=== PATIENT | female | born 1965 | race Caucasian/White ===

== ENCOUNTER 2018-06-02 11:00 | Observation (INO) | payer MEDICARE ==
--- NOTE | 2018-06-02 11:23 | ERPHSYRPT ---
- History of Present Illness Time Seen by Provider: 06/02/18 11:14 Source: patient, EMS Exam Limitations: no limitations Patient Subjective Stated Complaint: Pt states she became short of breath when leaving her apartment this morning to go to the [facility]. Pt states she drove herself to the [facility] and her car does not have air. She is also out of all of her medications. They have not come in the mail yet. Pt states she has not been able to sleep this week. Triage Nursing Assessment: Pt alert and oriented x3. skin pink warm and very diaphoretic. afebrile. lung sounds clear anteriorly. Pt breathing heavy - wears O2 4L all the time Physician History: The patient is a 52-year-old female brought in by ambulance from the [facility] where she becomes very short of breath. She has not been feeling well beginning this morning. She states that she gets short of breath when she exerts herself. She has been feeling hot and cold at the same time. She denies cough. She denies nausea, vomiting, or diarrhea. her prescription medicines are sent to her through the mail. She did not receive them last week as was expected. She called the pharmacy Center at the [facility] and was told that the medicines were delivered by [employer]. She did not receive them. She went to the [facility] this morning to inquire about the medicines and to get her weekly checks. She has COPD and is on 4 L of nasal cannula O2 at home she did not use her air tank on the drive to the [facility]. Past medical history significant for COPD, diabetes, hypertension, possible high cholesterol, depression, PE, and anxiety. Timing/Duration: today Activities at Onset: none Severity of Dyspnea-Max: moderate Severity of Dyspnea-Current: moderate Possible Cause: no prior episodes Modifying Factors: Improves With: activity, exertion Associated Symptoms: fever Allergies/Adverse Reactions: penicillin G Allergy (Mild, Verified 06/02/18 11:11) Hives tuberculin, purified protein deriva [From Tubersol] Adverse Reaction (Verified 06/02/18 11:11) Home Medications: Metformin HCl 500 mg 500 mg PO DAILY 01/30/13 [History] Oxybutynin Chloride 5 mg PO BID 01/30/13 [History] Propranolol HCl 80 mg PO BID 01/30/13 [History] Ziprasidone HCl 80 mg PO HS 01/30/13 [History] Oxcarbazepine 2 tab PO BID 01/31/13 [History] Vilazodone Hydrochloride [Viibryd] 1 tab PO DAILY 01/31/13 [History] Furosemide 20 mg [Lasix 20 mg] 20 mg PO DAILY 03/01/16 [History] Loratadine 10 mg [Claritin 10 mg] 10 mg PO HS 03/01/16 [History] Trazodone HCl 50 mg [Desyrel 50 mg] 50 mg PO HS 03/01/16 [History] Hx Tetanus, Diphtheria Vaccination/Date Given: No Hx Influenza Vaccination/Date Given: Yes Hx Pneumococcal Vaccination/Date Given: Yes - Review of Systems Constitutional: Fever, Chills Eyes: No Symptoms Ears, Nose, & Throat: No Symptoms Respiratory: Dyspnea, Dyspnea on Exertion (GONZALEZ), No Cough Cardiac: No Chest Pain, No Edema, No Syncope Abdominal/Gastrointestinal: No Abdominal Pain, No Nausea, No Vomiting, No Diarrhea Genitourinary Symptoms: No Dysuria Musculoskeletal: No Back Pain, No Neck Pain Skin: No Rash Neurological: No Dizziness, No Focal Weakness, No Sensory Changes Psychological: No Symptoms Endocrine: No Symptoms Hematologic/Lymphatic: No Symptoms Immunological/Allergic: No Symptoms All Other Systems: Reviewed and Negative - Past Medical History Pertinent Past Medical History: Yes Neurological History: Seizures ENT History: No Pertinent History Cardiac History: Hypertension Respiratory History: Bronchitis, Sleep Apnea, Other Endocrine Medical History: Diabetes Type II Musculoskeletal History: Arthritis, Degenerative Disk Disease GI Medical History: No Pertinent History Psycho-Social History: Anxiety, Depression Female Reproductive Disorders: Other Other Medical History: Pt is currently on O2 at home following a blood clot in her lungs last year. - Past Surgical History Past Surgical History: Yes Neuro Surgical History: No Pertinent History Cardiac: No Pertinent History Respiratory: No Pertinent History Gastrointestinal: Cholecystectomy Genitourinary: No Pertinent History Musculoskeletal: No Pertinent History Female Surgical History: No Pertinent History Other Surgical History: t&a - Social History Smoking Status: Never smoker Exposure to second hand smoke: Yes Drug Use: none Patient Lives Alone: Yes - Female History Hx Now: No - Nursing Vital Signs Nursing Vital Signs: Initial Vital Signs Temperature 98.1 F 06/02/18 11:02 Pulse Rate 87 06/02/18 11:02 Respiratory Rate 20 06/02/18 11:02 Blood Pressure 135/84 06/02/18 11:02 O2 Sat by Pulse Oximetry 98 06/02/18 11:02 Pain Scale Pain Intensity 8 - Physical Exam General Appearance: moderate distress, obese Eye Exam: PERRL/EOMI Ears, Nose, Throat Exam: hearing grossly normal Neck Exam: normal inspection, supple Respiratory Exam: diminished breath sounds, other (tachypneic) Cardiovascular/Chest Exam: normal heart sounds, regular rate/rhythm Abdominal/Gastrointestinal Exam: soft, No tenderness, No distention, No mass Rectal Exam: not done Extremity Exam: non-tender, normal range of motion, normal inspection, no calf tenderness, no pedal edema Neurologic Exam: alert, oriented x 3, cooperative, 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 study limited due to motion artifact and suboptimal contrast.) Ordered Tests: Active Orders 24 hr Category Date Time Status Clean Catch Urine Specimen STAT Care 06/02/18 11:31 Active EKG-ER Only STAT Care 06/02/18 11:31 Active IV Insertion STAT Care 06/02/18 11:31 Active CHEST 2 VIEWS (PA AND LAT) Stat Exams 06/02/18 12:16 Completed CHEST WITH CONTRAST [CT] Stat Exams 06/02/18 13:28 Completed CBC W DIFF Stat Lab 06/02/18 11:31 Completed CMP Stat Lab 06/02/18 11:31 Completed CULTURE,URINE Stat Lab 06/02/18 12:28 Received D-DIMER QUANTITATION Stat Lab 06/02/18 11:32 Completed LIPASE Stat Lab 06/02/18 11:31 Completed Lactic Acid Stat Lab 06/02/18 11:31 Completed Lactic Acid Stat Lab 06/02/18 13:42 Ordered TROPONIN Q3H Lab 06/02/18 11:45 Completed TROPONIN Q3H Lab 06/02/18 14:45 Ordered TROPONIN Q3H Lab 06/02/18 17:45 Ordered TROPONIN Q3H Lab 06/02/18 20:45 Ordered TROPONIN Q3H Lab 06/02/18 23:45 Ordered UA W/ MICROSCOPIC Stat Lab 06/02/18 12:28 Completed Medication Summary Discontinued Medications Generic Name Dose Route Start Last Admin Trade Name Yadi PRN Reason Stop Dose Admin Sodium Chloride 1,000 mls @ 999 mls/hr 06/02/18 11:31 06/02/18 11:51 Sodium Chloride 0.9% 1000 Ml IV 06/02/18 12:31 999 mls/hr .Q1H1M STA Administration Sodium Chloride Confirm 06/02/18 11:44 Sodium Chloride 0.9% 1000 Ml Administered 06/02/18 11:45 Dose 1,000 mls @ ud .ROUTE .STK-MED ONE Lab/Rad Data: Laboratory Result Diagrams 06/02/18 11:31 06/02/18 11:31 Laboratory Results 06/02/18 06/02/18 06/02/18 Range/Units 12:28 11:45 11:32 WBC (4.0-10.5) K/mm3 RBC (4.1-5.4) M/mm3 Hgb (12.0-16.0) gm/dl Hct (35-47) % MCV (78-100) fl MCH (26-32) pg MCHC (32-36) g/dl RDW (11.5-14.0) % Plt Count (150-450) K/mm3 MPV (6-9.5) fl Gran % (36.0-66.0) % Eos # (Auto) (0-0.5) Absolute Lymphs (auto) (1.0-4.6) Absolute Monos (auto) (0.0-1.3) Lymphocytes % (24.0-44.0) % Monocytes % (0.0-12.0) % Eosinophils % (0.00-5.0) % Basophils % (0.0-0.4) % Absolute Granulocytes (1.4-6.9) Basophils # (0-0.4) D-Dimer 703 H* (215-500) ng/mL Sodium (137-145) mmol/L Potassium (3.5-5.1) mmol/L Chloride (98-107) mmol/L Carbon Dioxide (22-30) mmol/L Anion Gap (5-15) MEQ/L BUN (7-17) mg/dL Creatinine (0.52-1.04) mg/dL Estimated GFR ML/MIN Glucose (74-106) mg/dL Lactic Acid (0.4-2.0) Calcium (8.4-10.2) mg/dL Total Bilirubin (0.2-1.3) mg/dL AST (14-36) U/L ALT (0-35) U/L Alkaline Phosphatase (38-126) U/L Troponin I < 0.012 (0.000-0.034) ng/mL Serum Total Protein (6.3-8.2) g/dL Albumin (3.5-5.0) g/dL Lipase (23-300) U/L Ur Collection Type VOID Urine Color YELLOW (YELLOW) Urine Appearance HAZY (CLEAR) Urine pH 5.0 (5-6) Ur Specific Dillon 1.020 (1.005-1.025) Urine Protein 3+ (Negative) Urine Ketones MODERATE (NEGATIVE) Urine Blood 5-10 (0-5) Rod/ul Urine Nitrite NEGATIVE (NEGATIVE) Urine Bilirubin SMALL (NEGATIVE) Urine Urobilinogen NORMAL (0-1) mg/dL Ur Leukocyte Esterase TRACE (NEGATIVE) Urine Microscopic RBC 5-10 (0-2) /HPF Urine Microscopic WBC 10-15 (0-5) /HPF Ur Epithelial Cells FEW (FEW) /HPF Urine Bacteria FEW (NEGATIVE) /HPF Urine Mucus SLIGHT (NEGATIVE) /HPF Urine Culture Reflexed YES (NO) Urine Glucose NEGATIVE (NEGATIVE) mg/dL Specimen Received 06/02/18 1228 06/02/18 06/02/18 06/02/18 Range/Units 11:31 11:31 11:31 WBC 9.2 (4.0-10.5) K/mm3 RBC 3.78 L (4.1-5.4) M/mm3 Hgb 12.0 (12.0-16.0) gm/dl Hct 37.2 (35-47) % MCV 98.4 (78-100) fl MCH 31.7 (26-32) pg MCHC 32.3 (32-36) g/dl RDW 13.9 (11.5-14.0) % Plt Count 216 (150-450) K/mm3 MPV 10.1 H (6-9.5) fl Gran % 65.7 (36.0-66.0) % Eos # (Auto) 0.20 (0-0.5) Absolute Lymphs (auto) 2.08 (1.0-4.6) Absolute Monos (auto) 0.85 (0.0-1.3) Lymphocytes % 22.6 L (24.0-44.0) % Monocytes % 9.2 (0.0-12.0) % Eosinophils % 2.2 (0.00-5.0) % Basophils % 0.3 (0.0-0.4) % Absolute Granulocytes 6.05 (1.4-6.9) Basophils # 0.03 (0-0.4) D-Dimer (215-500) ng/mL Sodium 143 (137-145) mmol/L Potassium 4.3 (3.5-5.1) mmol/L Chloride 103 (98-107) mmol/L Carbon Dioxide 23 (22-30) mmol/L Anion Gap 20.8 H (5-15) MEQ/L BUN 12 (7-17) mg/dL Creatinine 0.58 (0.52-1.04) mg/dL Estimated GFR > 60.0 ML/MIN Glucose 155 H (74-106) mg/dL Lactic Acid 5.0 H (0.4-2.0) Calcium 10.0 (8.4-10.2) mg/dL Total Bilirubin 0.40 (0.2-1.3) mg/dL AST 25 (14-36) U/L ALT 26 (0-35) U/L Alkaline Phosphatase 66 (38-126) U/L Troponin I (0.000-0.034) ng/mL Serum Total Protein 9.0 H (6.3-8.2) g/dL Albumin 4.9 (3.5-5.0) g/dL Lipase 299 (23-300) U/L Ur Collection Type Urine Color (YELLOW) Urine Appearance (CLEAR) Urine pH (5-6) Ur Specific Dillon (1.005-1.025) Urine Protein (Negative) Urine Ketones (NEGATIVE) Urine Blood (0-5) Rod/ul Urine Nitrite (NEGATIVE) Urine Bilirubin (NEGATIVE) Urine Urobilinogen (0-1) mg/dL Ur Leukocyte Esterase (NEGATIVE) Urine Microscopic RBC (0-2) /HPF Urine Microscopic WBC (0-5) /HPF Ur Epithelial Cells (FEW) /HPF Urine Bacteria (NEGATIVE) /HPF Urine Mucus (NEGATIVE) /HPF Urine Culture Reflexed (NO) Urine Glucose (NEGATIVE) mg/dL Specimen Received - Progress Progress: improved Air Movement: fair Blood Culture(s) Obtained: Yes Antibiotics given: Yes Discussed with : Elgin (discussed with Dr Eisenberg for Dr Will.) Will see patient in: hospital (observation) Counseled pt/family regarding: lab results, diagnosis, rad results - Departure Time of Disposition: 14:29 Departure Disposition: Observation (Dr Eisenberg for Dr Will) Clinical Impression: UTI (urinary tract infection), Elevated lactic acid level Condition: Stable Critical Care Time: No Referrals: GOSIA CERDA [Primary Care Provider] -
[2018-06-02] MEDS ORDERED: Sodium Chloride 0.9% 1000 ML 1,000 ML IV STA (11:31)
[2018-06-02] MEDS ORDERED: Sodium Chloride 0.9% 1000 ML 1,000 ML ONE (11:44)
[2018-06-02 11:52] LABS: BASOPHIL % 0.3 % (0.0-0.4); Basophil (Absolute #) 0.03 (0-0.4); Eosinophil % 2.2 % (0.00-5.0); Granulocyte Absolute (ANC) 6.05 (1.4-6.9); Granulocytes % 65.7 % (36.0-66.0); Hematocrit 37.2 % (35-47); Lymphocyte (Absolute #) 2.08 (1.0-4.6); Lymphocytes % 22.6 % (24.0-44.0); Mean Cell Volume 98.4 fl (78-100); Mean Corpuscular Hemoglobin 31.7 pg (26-32); Mean Corpuscular Hgb Concent. 32.3 g/dl (32-36); Mean Platelet Volume 10.1 fl (6-9.5); Monocyte (Absolute #) 0.85 (0.0-1.3); Monocytes % 9.2 % (0.0-12.0); Platelet Count 216 K/mm3 (150-450); Red Blood Count 3.78 M/mm3 (4.1-5.4); Red Cell Distribution Width 13.9 % (11.5-14.0); White Blood Count 9.2 K/mm3 (4.0-10.5)
[2018-06-02 12:08] LABS: ALBUMIN 4.9 g/dL (3.5-5.0); ALKALINE PHOSPHATASE 66 U/L (38-126); ANION GAP 20.8 MEQ/L (5-15); BLOOD UREA NITROGEN 12 mg/dL (7-17); CHLORIDE 103 mmol/L (98-107); Carbon Dioxide 23 mmol/L (22-30); Creatinine 1 0.58 mg/dL (0.52-1.04); Glucose 155 mg/dL (74-106); LIPASE 299 U/L (23-300); Potassium 4.3 mmol/L (3.5-5.1); SGOT/AST 25 U/L (14-36); SODIUM 143 mmol/L (137-145)
--- NOTE | 2018-06-02 12:27 | XRAY ---
Indication: Anxiety attack. Comparison: March 01, 2016. PA/lateral chest again demonstrates bilateral subsegmental atelectasis/scarring. No focal infiltrate, consolidation, or large effusion. Heart is not enlarged. Bony thorax intact again with mild degenerative changes. Impression: Nonacute chest with chronic features.
[2018-06-02 12:39] LABS: SGPT/ALT 26 U/L (0-35)
--- NOTE | 2018-06-02 13:41 | XRAY ---
Indication: Short of breath. Elevated d-dimer. Multiple contiguous axial images obtained through the chest using 80 cc Isovue 370 contrast and PE protocol. Comparison: March 01, 2016. There is suboptimal opacification of the pulmonary arteries limiting evaluation of the distal lobar and segmental branches. Also respiration artifact throughout the exam. No large central pulmonary embolus. Heart is not enlarged. Aorta is normal in course and caliber. Again a few left hilar calcified nodes. No pathologic mediastinal/hilar lymphadenopathy. New small hiatal hernia. Examination of the lung parenchyma again demonstrates bilateral discoid atelectasis/scarring and left upper lobe calcified granuloma. No suspicious pulmonary mass, infiltrate, or effusion. Bony thorax intact again with mild flowing osteophytes throughout the spine. Limited upper abdomen again demonstrates fatty liver. Impression: 1. Pulmonary embolus evaluation limited due to suboptimal contrast opacification and respiration artifact. No large central pulmonary embolus. 2. New small hiatal hernia. 3. Again fatty liver and evidence for old granulomatous disease. CT DI 35.17
[2018-06-02 14:09] LABS: Appearance HAZY (CLEAR); Bacteria FEW /HPF (NEGATIVE); Bilirubin SMALL (NEGATIVE); Epithelial Cells FEW /HPF (FEW); Glucose NEGATIVE (NEGATIVE); Ketones MODERATE (NEGATIVE); Leukocyte Esterase TRACE (NEGATIVE); Mucus SLIGHT /HPF (NEGATIVE); Nitrite NEGATIVE (NEGATIVE); Protein,Urine Dip 3+ (Negative); Urobilinogen NORMAL mg/dL (0-1)
[2018-06-02] MEDS ORDERED: ROCEPHIN 1 Gm-D5w 50 ml Bag** 1 G/50 ML IVPB IV STA (14:27)
[2018-06-02] MEDS ORDERED: Lactated Ringers 1,000 ML IV SCH (14:30)
[2018-06-02 14:51] LABS: Lactic Acid 3.3 (0.4-2.0)
[2018-06-02] MEDS ORDERED: ROCEPHIN 1 Gm-D5w 50 ml Bag** 1 G/50 ML IVPB IV ONE (14:51)
[2018-06-02] MEDS ORDERED: Lactated Ringers 1,000 ML IV ONE (14:51)
[2018-06-02] MEDS ORDERED: TYLENOL 325 MG PO PRN (15:50)
[2018-06-02] MEDS ORDERED: Zofran 4 MG/2 ML VIAL IV PRN (15:50)
[2018-06-02] MEDS: Zithromax 500 MG/ 250 ML NaCl Premix 500 MG/250 ML IVPB IV SCH (16:23)
[2018-06-02] MEDS ORDERED: MEDICATION INTERVENTION MC SCH (17:15)
[2018-06-02 17:21] LABS: Lactic Acid 3.5 (0.4-2.0)
[2018-06-02] MEDS: Lasix 40 MG PO SCH (17:23)
[2018-06-02] MEDS: MAG-OX 400 PO SCH (17:23)
[2018-06-02] MEDS: SODIUM CHLORIDE 0.45% W/ 20 mEq KCL 1,000 ML IV SCH (17:26)
[2018-06-02] MEDS: Zestril 5 MG PO SCH (17:26)
[2018-06-02] MEDS ORDERED: Glucophage 850 MG PO SCH (17:30)
[2018-06-02] MEDS: TYLENOL 325 MG PO PRN ×2 (18:24→23:10)
[2018-06-02] MEDS ORDERED: Ditropan 5 MG ONE (19:41)
[2018-06-02] MEDS ORDERED: Geodon 20 MG Capsule ONE (19:41)
[2018-06-02] MEDS ORDERED: Klonopin 0.5 MG ONE (19:41)
[2018-06-02] MEDS ORDERED: ZOCOR 20MG ONE (19:41)
[2018-06-02] MEDS ORDERED: CLARITIN 10 MG ONE (19:41)
[2018-06-02] MEDS ORDERED: Desyrel 150 MG ONE (19:41)
[2018-06-02] MEDS: CLARITIN 10 MG PO SCH ×2 (19:56→20:23)
[2018-06-02] MEDS: Desyrel 150 MG PO SCH (19:56)
[2018-06-02] MEDS: Ditropan 5 MG PO SCH (19:57)
[2018-06-02] MEDS: Geodon 20 MG Capsule PO SCH (19:58)
[2018-06-02] MEDS: Klonopin 0.5 MG PO SCH (19:58)
[2018-06-02] MEDS: NON-FORMULARY ITEM (Propranolol Hcl [Propranolol Hcl Er] 0 MG) PO SCH (19:59)
[2018-06-02] MEDS: Trileptal 300 MG Tablet PO SCH (20:01)
[2018-06-02] MEDS: ZOCOR 20MG PO SCH (20:02)
[2018-06-02] MEDS ORDERED: Lice Killing Shampoo TP ONE (21:00)
[2018-06-02 21:17] LABS: Lactic Acid 3.4 (0.4-2.0)
[2018-06-02] MEDS ORDERED: DESYREL 50 MG PO SCH (22:00)
[2018-06-02] MEDS ORDERED: CLONAZEPAM 0.5 MG PO SCH (22:00)
[2018-06-02] MEDS ORDERED: NON-FORMULARY ITEM (Simvastatin 40 Mg [Zocor 40 Mg] 20 MG) PO SCH (22:00)
[2018-06-02] MEDS ORDERED: OXCARBAZEPINE 600 MG PO SCH (22:00)
[2018-06-03 01:27] LABS: Lactic Acid 2.3 (0.4-2.0)
[2018-06-03] MEDS: SODIUM CHLORIDE 0.45% W/ 20 mEq KCL 1,000 ML IV SCH ×2 (04:04→16:14)
[2018-06-03 05:37] LABS: BASOPHIL % 0.3 % (0.0-0.4); Basophil (Absolute #) 0.02 (0-0.4); Eosinophil (Absolute #) 0.24 (0-0.5); Granulocyte Absolute (ANC) 4.53 (1.4-6.9); Granulocytes % 56.7 % (36.0-66.0); Hematocrit 31.7 % (35-47); Hemoglobin 9.9 gm/dl (12.0-16.0); Lymphocyte (Absolute #) 2.39 (1.0-4.6); Lymphocytes % 29.9 % (24.0-44.0); Mean Cell Volume 102.3 fl (78-100); Mean Corpuscular Hemoglobin 31.9 pg (26-32); Mean Corpuscular Hgb Concent. 31.2 g/dl (32-36); Mean Platelet Volume 9.6 fl (6-9.5); Monocyte (Absolute #) 0.81 (0.0-1.3); Monocytes % 10.1 % (0.0-12.0); Platelet Count 170 K/mm3 (150-450)
[2018-06-03 06:06] LABS: ALBUMIN 4.1 g/dL (3.5-5.0); ALKALINE PHOSPHATASE 50 U/L (38-126); ANION GAP 14.5 MEQ/L (5-15); BLOOD UREA NITROGEN 12 mg/dL (7-17); CHLORIDE 103 mmol/L (98-107); Calcium 8.8 mg/dL (8.4-10.2); Carbon Dioxide 27 mmol/L (22-30); Creatinine 1 0.55 mg/dL (0.52-1.04); Glucose 136 mg/dL (74-106); Potassium 4.3 mmol/L (3.5-5.1); SGOT/AST 22 U/L (14-36); SGPT/ALT 18 U/L (0-35); SODIUM 140 mmol/L (137-145); Total Protein 7.7 g/dL (6.3-8.2)
--- NOTE | 2018-06-03 08:52 | PCM.NOTE ---
Date and Time: 06/03/18 0848 Subjective Assessment: Pt admitted through [facility] with SOB, hypoxemia, elevated lactate. Troponins neg x 5. She is feeling better today. On rocephin and zithromax. Denies N/V today. - Review of Systems Constitutional: No Fever Respiratory: Short Of Breath, No Cough Abdominal/Gastrointestinal: No Nausea, No Vomiting Objective Exam General Appearance: no apparent distress, obese Neurologic Exam: alert, cooperative Skin Exam: normal color, warm, dry, No rash Respiratory Exam: diminished breath sounds, wheezing (faint occasional), No crackles/rales, No rhonchi Cardiovascular Exam: regular rate/rhythm, normal heart sounds, No murmur Gastrointestinal/Abdomen Exam: soft, normal bowel sounds, No tenderness, No mass , No guarding, No rebound Extremity Exam: No pedal edema, No swelling Back Exam: normal inspection, No rash OBJECTIVE DATA Vital Signs: Vital Signs - 24 hr Temp Pulse Resp BP Pulse Ox 06/03/18 07:40 98.1 F 67 20 134/76 98 06/03/18 06:58 98 06/03/18 06:50 86 L 06/03/18 04:00 98.0 F 67 16 110/56 98 06/03/18 00:00 98.3 F 66 16 129/56 98 06/02/18 20:00 97.7 F 86 16 137/60 97 06/02/18 17:31 92 H 22 97 06/02/18 16:22 98.4 F 86 22 175/84 97 06/02/18 15:57 98.4 F 86 22 175/84 97 06/02/18 15:03 71 26 H 143/82 96 06/02/18 14:35 98 06/02/18 14:05 79 22 136/77 93 L 06/02/18 13:45 80 22 140/95 97 06/02/18 12:31 91 H 16 151/85 98 06/02/18 11:02 98.1 F 87 20 135/84 98 Oxygen-Last 24 hours O2 Percentage 4 Liters = 36% O2 Percentage 4 Liters = 36% O2 Percentage 2 Liters = 28% O2 Percentage 2 Liters = 28% O2 Percentage 4 Liters = 36% O2 Percentage 4 Liters = 36% O2 Percentage 4 Liters = 36% O2 Percentage 4 Liters = 36% O2 Percentage 4 Liters = 36% Oxygen Flowrate (L/min)-RT 4 Oxygen Flowrate (L/min)-RT 4 Oxygen Flowrate (L/min)-RT 2 Pain Assessment - Last Documented Pain Intensity 4 Pain Scale Used [facility] Intake and Output: Intake & Output 05/31/18 06/01/18 06/02/18 06/03/18 11:59 11:59 11:59 11:59 Intake Total 3968 Output Total 1250 Balance 2718 Weight 131.995 kg 131 kg Lab Results: Accuchecks Accucheck Value: 143 Lab Results-Last 24 Hours 06/02/18 06/02/18 06/02/18 Range/Units 11:31 11:31 11:31 WBC 9.2 (4.0-10.5) K/mm3 RBC 3.78 L (4.1-5.4) M/mm3 Hgb 12.0 (12.0-16.0) gm/dl Hct 37.2 (35-47) % MCV 98.4 (78-100) fl MCH 31.7 (26-32) pg MCHC 32.3 (32-36) g/dl RDW 13.9 (11.5-14.0) % Plt Count 216 (150-450) K/mm3 MPV 10.1 H (6-9.5) fl Gran % 65.7 (36.0-66.0) % Eos # (Auto) 0.20 (0-0.5) Absolute Lymphs (auto) 2.08 (1.0-4.6) Absolute Monos (auto) 0.85 (0.0-1.3) Lymphocytes % 22.6 L (24.0-44.0) % Monocytes % 9.2 (0.0-12.0) % Eosinophils % 2.2 (0.00-5.0) % Basophils % 0.3 (0.0-0.4) % Absolute Granulocytes 6.05 (1.4-6.9) Basophils # 0.03 (0-0.4) PT (9.95-12.35) SECONDS INR (0.8-3.0) D-Dimer (215-500) ng/mL Sodium 143 (137-145) mmol/L Potassium 4.3 (3.5-5.1) mmol/L Chloride 103 (98-107) mmol/L Carbon Dioxide 23 (22-30) mmol/L Anion Gap 20.8 H (5-15) MEQ/L BUN 12 (7-17) mg/dL Creatinine 0.58 (0.52-1.04) mg/dL Estimated GFR > 60.0 ML/MIN Glucose 155 H (74-106) mg/dL Hemoglobin A1c (4.5-6.0) % Lactic Acid 5.0 H (0.4-2.0) Calcium 10.0 (8.4-10.2) mg/dL Total Bilirubin 0.40 (0.2-1.3) mg/dL AST 25 (14-36) U/L ALT 26 (0-35) U/L Alkaline Phosphatase 66 (38-126) U/L Troponin I (0.000-0.034) ng/mL Serum Total Protein 9.0 H (6.3-8.2) g/dL Albumin 4.9 (3.5-5.0) g/dL Lipase 299 (23-300) U/L Ur Collection Type Urine Color (YELLOW) Urine Appearance (CLEAR) Urine pH (5-6) Ur Specific [place] (1.005-1.025) Urine Protein (Negative) Urine Ketones (NEGATIVE) Urine Blood (0-5) Rod/ul Urine Nitrite (NEGATIVE) Urine Bilirubin (NEGATIVE) Urine Urobilinogen (0-1) mg/dL Ur Leukocyte Esterase (NEGATIVE) Urine Microscopic RBC (0-2) /HPF Urine Microscopic WBC (0-5) /HPF Ur Epithelial Cells (FEW) /HPF Urine Bacteria (NEGATIVE) /HPF Urine Mucus (NEGATIVE) /HPF Urine Culture Reflexed (NO) Urine Glucose (NEGATIVE) mg/dL Group A Strep Antibody (NEGATIVE) Specimen Received 06/02/18 06/02/18 06/02/18 Range/Units 11:32 11:45 12:28 WBC (4.0-10.5) K/mm3 RBC (4.1-5.4) M/mm3 Hgb (12.0-16.0) gm/dl Hct (35-47) % MCV (78-100) fl MCH (26-32) pg MCHC (32-36) g/dl RDW (11.5-14.0) % Plt Count (150-450) K/mm3 MPV (6-9.5) fl Gran % (36.0-66.0) % Eos # (Auto) (0-0.5) Absolute Lymphs (auto) (1.0-4.6) Absolute Monos (auto) (0.0-1.3) Lymphocytes % (24.0-44.0) % Monocytes % (0.0-12.0) % Eosinophils % (0.00-5.0) % Basophils % (0.0-0.4) % Absolute Granulocytes (1.4-6.9) Basophils # (0-0.4) PT (9.95-12.35) SECONDS INR (0.8-3.0) D-Dimer 703 H* (215-500) ng/mL Sodium (137-145) mmol/L Potassium (3.5-5.1) mmol/L Chloride (98-107) mmol/L Carbon Dioxide (22-30) mmol/L Anion Gap (5-15) MEQ/L BUN (7-17) mg/dL Creatinine (0.52-1.04) mg/dL Estimated GFR ML/MIN Glucose (74-106) mg/dL Hemoglobin A1c (4.5-6.0) % Lactic Acid (0.4-2.0) Calcium (8.4-10.2) mg/dL Total Bilirubin (0.2-1.3) mg/dL AST (14-36) U/L ALT (0-35) U/L Alkaline Phosphatase (38-126) U/L Troponin I < 0.012 (0.000-0.034) ng/mL Serum Total Protein (6.3-8.2) g/dL Albumin (3.5-5.0) g/dL Lipase (23-300) U/L Ur Collection Type VOID Urine Color YELLOW (YELLOW) Urine Appearance HAZY (CLEAR) Urine pH 5.0 (5-6) Ur Specific [place] 1.020 (1.005-1.025) Urine Protein 3+ (Negative) Urine Ketones MODERATE (NEGATIVE) Urine Blood 5-10 (0-5) Rod/ul Urine Nitrite NEGATIVE (NEGATIVE) Urine Bilirubin SMALL (NEGATIVE) Urine Urobilinogen NORMAL (0-1) mg/dL Ur Leukocyte Esterase TRACE (NEGATIVE) Urine Microscopic RBC 5-10 (0-2) /HPF Urine Microscopic WBC 10-15 (0-5) /HPF Ur Epithelial Cells FEW (FEW) /HPF Urine Bacteria FEW (NEGATIVE) /HPF Urine Mucus SLIGHT (NEGATIVE) /HPF Urine Culture Reflexed YES (NO) Urine Glucose NEGATIVE (NEGATIVE) mg/dL Group A Strep Antibody (NEGATIVE) Specimen Received 06/02/18 1228 06/02/18 06/02/18 06/02/18 Range/Units 12:45 13:42 14:50 WBC (4.0-10.5) K/mm3 RBC (4.1-5.4) M/mm3 Hgb (12.0-16.0) gm/dl Hct (35-47) % MCV (78-100) fl MCH (26-32) pg MCHC (32-36) g/dl RDW (11.5-14.0) % Plt Count (150-450) K/mm3 MPV (6-9.5) fl Gran % (36.0-66.0) % Eos # (Auto) (0-0.5) Absolute Lymphs (auto) (1.0-4.6) Absolute Monos (auto) (0.0-1.3) Lymphocytes % (24.0-44.0) % Monocytes % (0.0-12.0) % Eosinophils % (0.00-5.0) % Basophils % (0.0-0.4) % Absolute Granulocytes (1.4-6.9) Basophils # (0-0.4) PT (9.95-12.35) SECONDS INR (0.8-3.0) D-Dimer (215-500) ng/mL Sodium (137-145) mmol/L Potassium (3.5-5.1) mmol/L Chloride (98-107) mmol/L Carbon Dioxide (22-30) mmol/L Anion Gap (5-15) MEQ/L BUN (7-17) mg/dL Creatinine (0.52-1.04) mg/dL Estimated GFR ML/MIN Glucose (74-106) mg/dL Hemoglobin A1c (4.5-6.0) % Lactic Acid 3.3 H (0.4-2.0) Calcium (8.4-10.2) mg/dL Total Bilirubin (0.2-1.3) mg/dL AST (14-36) U/L ALT (0-35) U/L Alkaline Phosphatase (38-126) U/L Troponin I < 0.012 (0.000-0.034) ng/mL Serum Total Protein (6.3-8.2) g/dL Albumin (3.5-5.0) g/dL Lipase (23-300) U/L Ur Collection Type Urine Color (YELLOW) Urine Appearance (CLEAR) Urine pH (5-6) Ur Specific [place] (1.005-1.025) Urine Protein (Negative) Urine Ketones (NEGATIVE) Urine Blood (0-5) Rod/ul Urine Nitrite (NEGATIVE) Urine Bilirubin (NEGATIVE) Urine Urobilinogen (0-1) mg/dL Ur Leukocyte Esterase (NEGATIVE) Urine Microscopic RBC (0-2) /HPF Urine Microscopic WBC (0-5) /HPF Ur Epithelial Cells (FEW) /HPF Urine Bacteria (NEGATIVE) /HPF Urine Mucus (NEGATIVE) /HPF Urine Culture Reflexed (NO) Urine Glucose (NEGATIVE) mg/dL Group A Strep Antibody NEGATIVE (NEGATIVE) Specimen Received 06/02/18 06/02/18 06/02/18 Range/Units 14:52 16:51 17:19 WBC (4.0-10.5) K/mm3 RBC (4.1-5.4) M/mm3 Hgb (12.0-16.0) gm/dl Hct (35-47) % MCV (78-100) fl MCH (26-32) pg MCHC (32-36) g/dl RDW (11.5-14.0) % Plt Count (150-450) K/mm3 MPV (6-9.5) fl Gran % (36.0-66.0) % Eos # (Auto) (0-0.5) Absolute Lymphs (auto) (1.0-4.6) Absolute Monos (auto) (0.0-1.3) Lymphocytes % (24.0-44.0) % Monocytes % (0.0-12.0) % Eosinophils % (0.00-5.0) % Basophils % (0.0-0.4) % Absolute Granulocytes (1.4-6.9) Basophils # (0-0.4) PT (9.95-12.35) SECONDS INR (0.8-3.0) D-Dimer (215-500) ng/mL Sodium (137-145) mmol/L Potassium (3.5-5.1) mmol/L Chloride (98-107) mmol/L Carbon Dioxide (22-30) mmol/L Anion Gap (5-15) MEQ/L BUN (7-17) mg/dL Creatinine (0.52-1.04) mg/dL Estimated GFR ML/MIN Glucose (74-106) mg/dL Hemoglobin A1c (4.5-6.0) % Lactic Acid 3.5 H (0.4-2.0) Calcium (8.4-10.2) mg/dL Total Bilirubin (0.2-1.3) mg/dL AST (14-36) U/L ALT (0-35) U/L Alkaline Phosphatase (38-126) U/L Troponin I 0.015 0.015 (0.000-0.034) ng/mL Serum Total Protein (6.3-8.2) g/dL Albumin (3.5-5.0) g/dL Lipase (23-300) U/L Ur Collection Type Urine Color (YELLOW) Urine Appearance (CLEAR) Urine pH (5-6) Ur Specific [place] (1.005-1.025) Urine Protein (Negative) Urine Ketones (NEGATIVE) Urine Blood (0-5) Rod/ul Urine Nitrite (NEGATIVE) Urine Bilirubin (NEGATIVE) Urine Urobilinogen (0-1) mg/dL Ur Leukocyte Esterase (NEGATIVE) Urine Microscopic RBC (0-2) /HPF Urine Microscopic WBC (0-5) /HPF Ur Epithelial Cells (FEW) /HPF Urine Bacteria (NEGATIVE) /HPF Urine Mucus (NEGATIVE) /HPF Urine Culture Reflexed (NO) Urine Glucose (NEGATIVE) mg/dL Group A Strep Antibody (NEGATIVE) Specimen Received 06/02/18 06/02/18 06/03/18 Range/Units 21:07 21:10 01:20 WBC (4.0-10.5) K/mm3 RBC (4.1-5.4) M/mm3 Hgb (12.0-16.0) gm/dl Hct (35-47) % MCV (78-100) fl MCH (26-32) pg MCHC (32-36) g/dl RDW (11.5-14.0) % Plt Count (150-450) K/mm3 MPV (6-9.5) fl Gran % (36.0-66.0) % Eos # (Auto) (0-0.5) Absolute Lymphs (auto) (1.0-4.6) Absolute Monos (auto) (0.0-1.3) Lymphocytes % (24.0-44.0) % Monocytes % (0.0-12.0) % Eosinophils % (0.00-5.0) % Basophils % (0.0-0.4) % Absolute Granulocytes (1.4-6.9) Basophils # (0-0.4) PT (9.95-12.35) SECONDS INR (0.8-3.0) D-Dimer (215-500) ng/mL Sodium (137-145) mmol/L Potassium (3.5-5.1) mmol/L Chloride (98-107) mmol/L Carbon Dioxide (22-30) mmol/L Anion Gap (5-15) MEQ/L BUN (7-17) mg/dL Creatinine (0.52-1.04) mg/dL Estimated GFR ML/MIN Glucose (74-106) mg/dL Hemoglobin A1c (4.5-6.0) % Lactic Acid 3.4 H 2.3 H (0.4-2.0) Calcium (8.4-10.2) mg/dL Total Bilirubin (0.2-1.3) mg/dL AST (14-36) U/L ALT (0-35) U/L Alkaline Phosphatase (38-126) U/L Troponin I < 0.012 (0.000-0.034) ng/mL Serum Total Protein (6.3-8.2) g/dL Albumin (3.5-5.0) g/dL Lipase (23-300) U/L Ur Collection Type Urine Color (YELLOW) Urine Appearance (CLEAR) Urine pH (5-6) Ur Specific [place] (1.005-1.025) Urine Protein (Negative) Urine Ketones (NEGATIVE) Urine Blood (0-5) Rod/ul Urine Nitrite (NEGATIVE) Urine Bilirubin (NEGATIVE) Urine Urobilinogen (0-1) mg/dL Ur Leukocyte Esterase (NEGATIVE) Urine Microscopic RBC (0-2) /HPF Urine Microscopic WBC (0-5) /HPF Ur Epithelial Cells (FEW) /HPF Urine Bacteria (NEGATIVE) /HPF Urine Mucus (NEGATIVE) /HPF Urine Culture Reflexed (NO) Urine Glucose (NEGATIVE) mg/dL Group A Strep Antibody (NEGATIVE) Specimen Received 06/03/18 06/03/18 06/03/18 Range/Units 05:25 05:25 05:25 WBC 8.0 (4.0-10.5) K/mm3 RBC 3.10 L (4.1-5.4) M/mm3 Hgb 9.9 L (12.0-16.0) gm/dl Hct 31.7 L (35-47) % MCV 102.3 H (78-100) fl MCH 31.9 (26-32) pg MCHC 31.2 L (32-36) g/dl RDW 14.0 (11.5-14.0) % Plt Count 170 (150-450) K/mm3 MPV 9.6 H (6-9.5) fl Gran % 56.7 (36.0-66.0) % Eos # (Auto) 0.24 (0-0.5) Absolute Lymphs (auto) 2.39 (1.0-4.6) Absolute Monos (auto) 0.81 (0.0-1.3) Lymphocytes % 29.9 (24.0-44.0) % Monocytes % 10.1 (0.0-12.0) % Eosinophils % 3.0 (0.00-5.0) % Basophils % 0.3 (0.0-0.4) % Absolute Granulocytes 4.53 (1.4-6.9) Basophils # 0.02 (0-0.4) PT 11.6 (9.95-12.35) SECONDS INR 1.00 (0.8-3.0) D-Dimer (215-500) ng/mL Sodium 140 (137-145) mmol/L Potassium 4.3 (3.5-5.1) mmol/L Chloride 103 (98-107) mmol/L Carbon Dioxide 27 (22-30) mmol/L Anion Gap 14.5 (5-15) MEQ/L BUN 12 (7-17) mg/dL Creatinine 0.55 (0.52-1.04) mg/dL Estimated GFR > 60.0 ML/MIN Glucose 136 H (74-106) mg/dL Hemoglobin A1c (4.5-6.0) % Lactic Acid (0.4-2.0) Calcium 8.8 (8.4-10.2) mg/dL Total Bilirubin 0.40 (0.2-1.3) mg/dL AST 22 (14-36) U/L ALT 18 (0-35) U/L Alkaline Phosphatase 50 (38-126) U/L Troponin I (0.000-0.034) ng/mL Serum Total Protein 7.7 (6.3-8.2) g/dL Albumin 4.1 (3.5-5.0) g/dL Lipase (23-300) U/L Ur Collection Type Urine Color (YELLOW) Urine Appearance (CLEAR) Urine pH (5-6) Ur Specific [place] (1.005-1.025) Urine Protein (Negative) Urine Ketones (NEGATIVE) Urine Blood (0-5) Rod/ul Urine Nitrite (NEGATIVE) Urine Bilirubin (NEGATIVE) Urine Urobilinogen (0-1) mg/dL Ur Leukocyte Esterase (NEGATIVE) Urine Microscopic RBC (0-2) /HPF Urine Microscopic WBC (0-5) /HPF Ur Epithelial Cells (FEW) /HPF Urine Bacteria (NEGATIVE) /HPF Urine Mucus (NEGATIVE) /HPF Urine Culture Reflexed (NO) Urine Glucose (NEGATIVE) mg/dL Group A Strep Antibody (NEGATIVE) Specimen Received 06/03/18 06/03/18 Range/Units 05:25 05:30 WBC (4.0-10.5) K/mm3 RBC (4.1-5.4) M/mm3 Hgb (12.0-16.0) gm/dl Hct (35-47) % MCV (78-100) fl MCH (26-32) pg MCHC (32-36) g/dl RDW (11.5-14.0) % Plt Count (150-450) K/mm3 MPV (6-9.5) fl Gran % (36.0-66.0) % Eos # (Auto) (0-0.5) Absolute Lymphs (auto) (1.0-4.6) Absolute Monos (auto) (0.0-1.3) Lymphocytes % (24.0-44.0) % Monocytes % (0.0-12.0) % Eosinophils % (0.00-5.0) % Basophils % (0.0-0.4) % Absolute Granulocytes (1.4-6.9) Basophils # (0-0.4) PT (9.95-12.35) SECONDS INR (0.8-3.0) D-Dimer (215-500) ng/mL Sodium (137-145) mmol/L Potassium (3.5-5.1) mmol/L Chloride (98-107) mmol/L Carbon Dioxide (22-30) mmol/L Anion Gap (5-15) MEQ/L BUN (7-17) mg/dL Creatinine (0.52-1.04) mg/dL Estimated GFR ML/MIN Glucose (74-106) mg/dL Hemoglobin A1c 5.89 (4.5-6.0) % Lactic Acid 2.0 (0.4-2.0) Calcium (8.4-10.2) mg/dL Total Bilirubin (0.2-1.3) mg/dL AST (14-36) U/L ALT (0-35) U/L Alkaline Phosphatase (38-126) U/L Troponin I (0.000-0.034) ng/mL Serum Total Protein (6.3-8.2) g/dL Albumin (3.5-5.0) g/dL Lipase (23-300) U/L Ur Collection Type Urine Color (YELLOW) Urine Appearance (CLEAR) Urine pH (5-6) Ur Specific [place] (1.005-1.025) Urine Protein (Negative) Urine Ketones (NEGATIVE) Urine Blood (0-5) Rod/ul Urine Nitrite (NEGATIVE) Urine Bilirubin (NEGATIVE) Urine Urobilinogen (0-1) mg/dL Ur Leukocyte Esterase (NEGATIVE) Urine Microscopic RBC (0-2) /HPF Urine Microscopic WBC (0-5) /HPF Ur Epithelial Cells (FEW) /HPF Urine Bacteria (NEGATIVE) /HPF Urine Mucus (NEGATIVE) /HPF Urine Culture Reflexed (NO) Urine Glucose (NEGATIVE) mg/dL Group A Strep Antibody (NEGATIVE) Specimen Received Radiology Exams: Radiology Procedures Category Date Time Status CHEST 2 VIEWS (PA AND LAT) Stat Exams 06/02/18 12:16 Completed CHEST WITH CONTRAST [CT] Stat Exams 06/02/18 13:28 Completed Assessment/Plan (1) COPD exacerbation Current Visit: Yes Status: Acute Assessment & Plan: Possibly, although not a big history of cough. she does have SOB and was hypoxemic (although was not on her home O2 at admission). On rocephin an dzithromax wiht improvement. Will plan to keep 1 more day and d/c home tomorrow. Code(s): J44.1 - CHRONIC OBSTRUCTIVE PULMONARY DISEASE W (ACUTE) EXACERBATION (2) Chronic hypoxemic respiratory failure Current Visit: Yes Status: Chronic (3) Hypoxia Current Visit: Yes Status: Resolved Assessment & Plan: Troponins neg. CT neg for large PE (suboptimal imaging however due to respiration artifact). Code(s): R09.02 - HYPOXEMIA (4) Elevated lactic acid level Current Visit: Yes Status: Resolved Onset Date: ~06/02/18 Code(s): R79.89 - OTHER SPECIFIED ABNORMAL FINDINGS OF BLOOD CHEMISTRY (5) UTI (urinary tract infection) Current Visit: Yes Status: Acute Onset Date: ~06/02/18 Qualifiers: Urinary tract infection type: acute cystitis Assessment & Plan: some WBC on UA - neg nitrites. UCx pending. Code(s): N39.0 - URINARY TRACT INFECTION, SITE NOT SPECIFIED (6) Anxiety Current Visit: No Status: Chronic Code(s): F41.9 - ANXIETY DISORDER, UNSPECIFIED (7) Depression Current Visit: No Status: Chronic Code(s): F32.9 - MAJOR DEPRESSIVE DISORDER , SINGLE EPISODE, UNSPECIFIED
--- NOTE | 2018-06-03 09:35 | HP ---
CHIEF COMPLAINT: Shortness of breath and diaphoresis. She has been out of medications for the past two days. HISTORY OF PRESENT ILLNESS: The patient is a 52 year-old white female who apparently had run out of her medications on Saturday. She is on a long list of medications. She apparently had called a friend at the [facility] who was going to milk pickup truck driver her medications for her. When she presented there she was quite diaphoretic and short of breath. The patient has hypoxemia and is on home oxygen but does not carry her oxygen with her because the tank does not last long enough and she runs out of air anyway. PAST MEDICAL/SURGICAL HISTORY: Significant hypoxia, diabetes mellitus type 2, depression, anxiety, degenerative disc disease, hypertension. Previously she has had a cholecystectomy. HOME MEDICATIONS: Clonazepam 0.5 mg b.i.d., Lasix 20 mg tablet 40 mg a day, lisinopril 5 mg a day, loratadine 10 mg a day, magnesium oxide tablets, Metformin 850 mg b.i.d., oxcarbazepine 600 mg b.i.d., Propranolol Extended-Release 80 mg b.i.d., Simvastatin 20 mg at night, VESIcare 10 mg daily, trazodone 50 mg tablets 150 mg at night, Viibryd 40 mg a day, Geodon 20 mg tablets 60 mg at night. ALLERGIES: PENICILLIN, TUBERCULIN TEST. PHYSICAL EXAMINATION: Revealed a morbidly obese white female currently she appears to be somewhat dyspneic but able to speak in full sentences. She has oxygen on presently per nasal cannula. Her vital signs in the emergency room showed a temperature 98.1F, pulse 87, respiratory rate 20 and blood pressure 135/84. O2 saturation 98% on supplemental oxygen. HEENT: Normocephalic, atraumatic. Pupils equal round reactive to light. Extraocular movements intact. Oropharynx is pink and moist. NECK: Supple without lymphadenopathy, thyromegaly or JVD. CHEST: Clear to auscultation with good air movement bilaterally. HEART: Regular rate and rhythm without significant murmurs, rubs or gallops. ABDOMEN: Soft. No palpable masses are felt. EXTREMITIES: Without clubbing, cyanosis or edema. SKIN: She does have what appears to be a fungal infection under the panniculus and under her breasts less so. She has no evidence of cellulitis. NEUROLOGIC: The patient is alert and oriented x3. No focal deficits are noted. LAB DATA AND TESTS: Troponin less than 0.012. Her D-dimer was significantly elevated but due to motion artifact they were unable to do a good CT pulmonary embolism protocol. They were able to tell that she had no large central pulmonary embolism. Her urine showed a specific gravity 1.020 with 3+ protein. There were 10-15 white blood cell per high power field, nitrite negative, 5-10 red blood cells per high power field. The lactate was significantly elevated to 5.0. D-dimer was 703. Glucose 155 nonfasting, BUN 12, creatinine 0.58. Electrolytes were normal. Liver enzymes were normal. Lipase was normal. CBC showed white blood cell count 9,200, hemoglobin 12.0, PLT count 216,000. Repeat lactic was done to 3.3 after 2 liters of fluids. She had a chest x-ray that was nonacute with chronic features. ASSESSMENT: A patient with hypoxia and diaphoresis, elevated lactic acid and for some unknown reason the patient does not appear to be septic but is receiving sepsis protocol due to the significant elevation in her lactate and her appearance on admission. She is currently receiving Rocephin and Zithromax after cultures had been obtained. She will be monitored on telemetry on the floor. Fluids now running at 100 cc/hour of half-normal with 20 of K. The patient does report that she is feeling better. We will continue to monitor her lactic acid as it returns hopefully to normal and we will recheck her troponin to be sure we do not get a big spike in that as well as rechecking her CBC. She has blood and urine cultures that are pending.
[2018-06-03] MEDS ORDERED: NON-FORMULARY ITEM (Solifenacin Succinate [Vesicare] 10 MG) PO SCH (10:00)
[2018-06-03] MEDS ORDERED: MAGNESIUM OXIDE 250 MG PO SCH (10:00)
[2018-06-03] MEDS ORDERED: LASIX 20 MG PO SCH (10:00)
[2018-06-03] MEDS: MAG-OX 400 PO SCH (10:36)
[2018-06-03] MEDS: Lasix 40 MG PO SCH (10:37)
[2018-06-03] MEDS: Klonopin 0.5 MG PO SCH ×2 (10:37→21:57)
[2018-06-03] MEDS: ROCEPHIN 1 Gm-D5w 50 ml Bag** 1 G/50 ML IVPB IV SCH (10:37)
[2018-06-03] MEDS: Zestril 5 MG PO SCH (10:38)
[2018-06-03] MEDS: Ditropan 5 MG PO SCH ×2 (10:38→21:57)
[2018-06-03] MEDS: Trileptal 300 MG Tablet PO SCH ×2 (10:39→21:59)
[2018-06-03] MEDS: NON-FORMULARY ITEM (Propranolol Hcl [Propranolol Hcl Er] 0 MG) PO SCH ×2 (10:40→21:58)
[2018-06-03] MEDS: Zithromax 500 MG/ 250 ML NaCl Premix 500 MG/250 ML IVPB IV SCH (11:30)
[2018-06-03] MEDS: TYLENOL 325 MG PO PRN ×2 (13:42→22:07)
[2018-06-03] MEDS: Geodon 20 MG Capsule PO SCH (21:57)
[2018-06-03] MEDS: Desyrel 150 MG PO SCH (21:57)
[2018-06-03] MEDS: ZOCOR 20MG PO SCH (21:58)
[2018-06-03] MEDS: CLARITIN 10 MG PO SCH (21:59)
[2018-06-04] MEDS: SODIUM CHLORIDE 0.45% W/ 20 mEq KCL 1,000 ML IV SCH (03:16)
[2018-06-04 08:14] VITALS: BP 127/60; PULSE 64; O2SAT 99
--- NOTE | 2018-06-04 08:49 | PCM.DS ---
Discharge Summary Date of Admission: 06/02/18 15:48 Admitting Physician: CRISTIAN DANIELS Primary Care Provider: CRISTIAN DANIELS Allergies Allergies penicillin G Allergy (Mild, Verified 06/02/18 11:11) Hives tuberculin, purified protein deriva [From Tubersol] Adverse Reaction (Verified 06/02/18 11:11) Hospital Summary - Hospital Course Hospital Course: Pt admitted through ER with SOB and hypoxia and has been treated for possible UTI and COPD exacerbation. She had driven to [facility] without her O2 on (wears 4L NC at home) in pursuit of her medications. Had been having hot/cold flashes. Her breathing has been good that past few days; she did get down to 87% O2 sat last night and was started on CPAP. Pt with known hx JOSH and is supposed to wear CPAP at home but she can't find it. Pt was noted to have mod-severe lice infestation on admission and is in isolation. She was treated on admission. Apparently has been treated recently without resolution. She used to live in a [place] [facility] but now lives alone ( mental disability). She apparently drives but does have home assistance 2h/d, 2d/wk. They note that she is often uncooperative. On discharge, she will need another CPAP machine if eligible. Home on antibiotics. referral. - Vitals & Intake/Output Vital Signs: Vital Signs Temperature 97.6 F 06/04/18 08:00 Pulse Rate 64 06/04/18 08:00 Respiratory Rate 16 06/04/18 08:00 Blood Pressure 127/60 06/04/18 08:00 O2 Sat by Pulse Oximetry 99 06/04/18 08:00 Oxygen-Last Documented O2 Percentage 5 Liters = 40% Intake & Output: Intake & Output 06/01/18 06/02/18 06/03/18 06/04/18 11:59 11:59 11:59 11:59 Intake Total 4308 3194 Output Total 1450 Balance 2858 3194 Weight 131.995 kg 131 kg - Lab Result Diagrams: 06/03/18 05:25 06/03/18 05:25 Lab Results-Last 24 Hrs: Accuchecks Date 06/04/18 Time 07:30 Accucheck Value: 120 Accucheck Value: 161 Accucheck Value: 120 Micro Results-Entire Visit: Microbiology 06/02/18 12:28 Urine Culture - Preliminary Urine, Void GRAM NEGATIVE ID AND SENSITIVITY PENDING 06/02/18 14:52 Blood Culture - Preliminary Blood NO GROWTH TO DATE 06/02/18 14:52 Blood Culture - Preliminary Blood NO GROWTH TO DATE Accuchecks Date 06/04/18 Time 07:30 Accucheck Value: 120 Accucheck Value: 161 Accucheck Value: 120 - Radiology Exams Ordered Rad Exams-Entire Visit: Radiology Procedures Category Date Time Status CHEST 2 VIEWS (PA AND LAT) Stat Exams 06/02/18 12:16 Completed CHEST WITH CONTRAST [CT] Stat Exams 06/02/18 13:28 Completed - Procedures and Test Procedures and Tests throughout Hospitalization: Therapy Orders & Screens 06/02/18 15:50 Oxygen NASAL CANNULA 4 lpm Comment: 06/02/18 16:08 RT Screen per Nursing Assess ONCE Comment: Protocol Order Physician Instructions: Greater than 3 points order RT Admission Screen Reason For Exam: Triggered on Admission Diagnosis: UTI Diagnosis: UTI Pneumonia: No Home O2: Yes Asthma: No CHF: No Home CPAP/BIPAP: Yes Home Nebs/MDI: No Total Points: 10 06/02/18 17:30 Respiratory Therapy Assessment DAILY Comment: Diagnosis: UTI 06/04/18 01:38 BiPap/CPAP ROUTINE Comment: CPAP [id number] AT NIGHT WITH 4L O2 Diagnosis: UTI Discharge Exam General Appearance: no apparent distress, obese Neurologic Exam: alert, oriented x 3, cooperative Skin Exam: normal color, warm, dry, No rash Respiratory Exam: lungs clear, diminished breath sounds, No crackles/rales, No rhonchi, No wheezing Cardiovascular Exam: regular rate/rhythm, normal heart sounds, No murmur Gastrointestinal/Abdomen Exam: soft, No tenderness, No guarding, No rebound Extremity Exam: No pedal edema, No swelling Final Diagnosis/Problem List - Final Discharge Diagnosis/Problem (1) COPD exacerbation Current Visit: Yes Status: Acute Onset Date: ~06/02/18 Assessment & Plan: Will d/c to home on cefdinir. This is day #3 of zithromax and rocephin; d/c after today's dose of zithromax. F/u with or Skye Marie in 1 wk. (2) Chronic hypoxemic respiratory failure Current Visit: Yes Status: Chronic Onset Date: ~06/02/18 Assessment & Plan: 4L O2 per NC at home. (3) Hypoxia Current Visit: Yes Status: Resolved Onset Date: ~06/02/18 (4) UTI (urinary tract infection) Current Visit: Yes Status: Acute Onset Date: ~06/02/18 Assessment & Plan: Home on antibiotics as above. Preliminary cx is Gram neg, ID & sensitivity pending. (5) Anxiety Current Visit: No Status: Chronic (6) Depression Current Visit: No Status: Chronic (7) Pediculosis capitis Current Visit: Yes Status: Acute Assessment & Plan: treated; on isolation precautions. - Discharge Disposition: Home, Self-Care Condition: Stable Prescriptions: New Cefdinir 300 mg PO BID #14 capsule Continue Oxcarbazepine 600 mg PO BID Vilazodone Hydrochloride [Viibryd] 40 mg PO DAILY Trazodone HCl 50 mg [Desyrel 50 mg] 150 mg PO HS Furosemide 20 mg [Lasix 20 mg] 40 mg PO DAILY Loratadine 10 mg [Claritin 10 mg] 10 mg PO HS Acetaminophen 325 mg [Tylenol 325 mg] 650 mg PO Q4H PRN PRN #90 tablet PRN Reason: Pain And/Or Fever Clonazepam [Klonopin] 0.5 mg PO BID Metformin HCl 850 mg [Glucophage 850 MG] 850 mg PO BID Lisinopril 5 mg [Zestril 5 MG] 5 mg PO DAILY Ziprasidone 20 mg [Geodon 20 MG Capsule] 60 mg PO HS Solifenacin Succinate [Vesicare] 10 mg PO DAILY Simvastatin 40 mg [Zocor 40 mg] 20 mg PO HS Propranolol HCl [Propranolol HCl ER] 80 mg PO BID Magnesium Oxide 250 mg PO DAILY Additional Instructions: CALL NURSE CARE ON D/C AT [phone], 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
[2018-06-04] MEDS: Klonopin 0.5 MG PO SCH (09:17)
[2018-06-04] MEDS: Ditropan 5 MG PO SCH (09:17)
[2018-06-04] MEDS: MAG-OX 400 PO SCH (09:17)
[2018-06-04] MEDS: ROCEPHIN 1 Gm-D5w 50 ml Bag** 1 G/50 ML IVPB IV SCH (09:17)
[2018-06-04] MEDS: Trileptal 300 MG Tablet PO SCH (09:18)
[2018-06-04] MEDS: Lasix 40 MG PO SCH (09:18)
[2018-06-04] MEDS: Zestril 5 MG PO SCH (09:18)
[2018-06-04] MEDS: NON-FORMULARY ITEM (Propranolol Hcl [Propranolol Hcl Er] 0 MG) PO SCH (09:19)
[2018-06-04] MEDS: Zithromax 500 MG/ 250 ML NaCl Premix 500 MG/250 ML IVPB IV SCH (09:58)
[2018-06-04] MEDS ORDERED: ENOXAPARIN SODIUM SQ SCH (10:00)
[2018-06-04] MEDS ORDERED: TYLENOL 325 MG PO SCH (10:00)
== END 2018-06-04 11:15 | disposition home or self-care (01) ==
LOC: ED 11:00 → MED SURG 15:48
PROVIDERS: ADMIT Family Medicine; ATTEND Family Medicine
DX: J44.1 Chronic obstructive pulmonary disease with (acute) exacerbation (principal); J96.11 Chronic respiratory failure with hypoxia; N39.0 Urinary tract infection, site not specified; R06.02 Shortness of breath; F41.9 Anxiety disorder, unspecified; F32.9 Major depressive disorder, single episode, unspecified; B85.0 Pediculosis due to Pediculus humanus capitis; E11.9 Type 2 diabetes mellitus without complications; Z79.4 Long term (current) use of insulin; I10 Essential (primary) hypertension; E66.2 Morbid (severe) obesity with alveolar hypoventilation; R79.89 Other specified abnormal findings of blood chemistry
CPT/HCPCS: 36000; 36415; 71046; 71260; 80053; 81000; 83036; 83605; 83690; 84484; 85025; 85379; 85610; 87040; 87077; 87086; 87186; 87651; 93005; 93268; 94660; 94760; 94762; 96360; 96365; 99285; G0378; J0456; J0696; J1650; A9270-GY